=== PATIENT | male | born 1995 | race Caucasian/White ===

== ENCOUNTER 2017-02-28 18:54 | Emergency (ER) | payer OTHER ==
[~2017-02-28] VITALS: Ht 172.7 cm; Wt 77.5 kg
[~2017-02-28 18:54] MED LIST: BACTDS PO; CEPH-443 PO; IBUP-1542 PO
[2017-02-28 18:59] VITALS: Ht 172.7 cm; Wt 77.5 kg
[2017-02-28] MEDS ORDERED: CEPH-443 PO (21:14)
[2017-02-28] MEDS ORDERED: IBUP-1542 PO (21:14)
--- NOTE | 2017-02-28 21:18 | ERD ---
ER Documentation Chief Complaint Date/Time DATE: 02/28/17 TIME: 21:15 Chief Complaint foreign boy right ring finger"wood" HPI 21-year-old male presents here in emergency department for complaints of a foreign body stuck in the end or his right ring fingernail for 5 days. Patient describes the pain as sharp pain, 6/10 scale, is worse upon touching the area. Patient states that he went to the clinic, they were able to drain some pus. The foreign body still in place. Patient denies any numbness or tingling. Patient denies any fever or chills. Patient did not take any medications for pain. ROS All systems reviewed and are negative except as per history of present illness. Medications Home Meds Active Scripts Ibuprofen* (Motrin*) 600 Mg Tab, 600 MG PO Q6H Y for PAIN AND OR ELEVATED TEMP, #30 TAB Prov:ORI RAYO NP 02/28/17 Cephalexin* (Keflex*) 500 Mg Capsule, 500 MG PO QID for 10 Days, CAP Prov:ORI RAYO NP 02/28/17 Ibuprofen* (Motrin*) 600 Mg Tab, 600 MG PO Q6H Y for PAIN AND OR ELEVATED TEMP, #30 TAB Prov:ORI RAYO NP 11/10/15 Cephalexin* (Keflex*) 500 Mg Capsule, 500 MG PO QID for 10 Days, CAP Prov:ORI RAYO NP 11/10/15 Sulfamethoxazole-Trimethoprim* (Bactrim* DS) 800-160 Mg Tab, 1 TAB PO BID for 10 Days, TAB Prov:ORI RAYO NP 11/10/15 Reported Medications [none] Unknown Strength No Conflict Check 11/10/15 Allergies Allergies: Coded Allergies: No Known Allergy (Unverified , 01/22/14) PMhx/Soc Medical and Surgical Hx: pt denies Medical Hx, pt denies Surgical Hx Hx Alcohol Use: No Hx Substance Use: No Hx Tobacco Use: No Smoking Status: Never smoker FmHx Family History: No coronary disease, No diabetes, No other Physical Exam Vitals Vital Signs Date Time Temp Pulse Resp B/P Pulse Ox O2 Delivery O2 Flow Rate FiO2 02/28/17 18:59 97.9 75 20 124/72 97 Physical Exam GENERAL: The patient is well developed and appropriate for usual state of health, in no apparent distress. CHEST: Clear to auscultation bilaterally. There are no rales, wheezes or rhonchi. HEART: Regular rate and rhythm. No murmurs, clicks, rubs or gallops. No S3 or S4. ABDOMEN: Soft, nontender and nondistended. Good bowel sounds. No rebound or guarding. No gross peritonitis. No gross organomegaly or masses. No Radford sign or McBurney point tenderness. BACK: No midline or flank tenderness. EXTREMITIES: Equal pulses bilaterally. There is no peripheral clubbing, cyanosis or edema. No focal swelling or erythema. Full range of motion. Grossly neurovascularly intact. NEURO: Alert and oriented. Cranial nerves 2-12 intact. Motor strength in all 4 extremities with 5/5 strength. Sensation grossly intact. Normal speech and gait. SKIN: Noted 0.5 cm of wood splinter noted under the right ring fingernail. No pustular discharge noted, no fluctuance noted. There is no apparent ecchymosis or petechia. The skin is warm and dry. HEMATOLOGIC AND LYMPHATIC: There is no evidence of excessive bruising or lymphedema. No gross cervical, axillary, or inguinal lymphadenopathy. Results 24 hrs Current Medications Medications (Trade) Dose Ordered Sig/Kamila Route PRN Reason Start Time Stop Time Status Last Admin Dose Admin Diphtheria/ Tetanus/Acell Pertussis (Adacel) 0.5 ml ONCE ONCE IM* 02/28/17 21:30 02/28/17 21:31 Tdap was given to prevent tetanus. Patient tolerated medication well. Procedures/MDM Procedure note: After patient's verbal consent, the area was cleaned with diluted Betadine, after cleaning the wound, then that it wood splinter was removed without any difficulty using a tweezer. Patient tolerated procedure well. Medical Decision making: The wood splinter was removed without any difficulty. No symptoms of any neurovascular compromise. No symptoms of any abscess at this time. No symptoms of any sepsis at this time. Should she was given for Keflex to prevent infection, ibuprofen for pain, was advised to do wound care on affected area, return to emergency department for any worsening symptoms. Otherwise, advised to follow-up with primary care doctor in 2 days for reevaluation of symptoms. Departure Diagnosis: Primary Impression: Embedded wood splinter Condition: Stable Patient Instructions: Foreign Body, Soft Tissue (Removed) ORI RAYO NP Feb 28, 2017 21:18
[2017-02-28] MEDS ORDERED: DIPHTH/TET/ACEL PERTUSS (ADULT) 0.5 ML VIAL IM* ONE (21:30)
--- NOTE | 2017-03-01 05:52 | ERD ---
ER Documentation Chief Complaint Date/Time DATE: 02/28/17 TIME: 21:10 Chief Complaint foreign boy right ring finger"wood" HPI See other documentation. ROS All systems reviewed and are negative except as per history of present illness. Medications Home Meds Active Scripts Ibuprofen* (Motrin*) 600 Mg Tab, 600 MG PO Q6H Y for PAIN AND OR ELEVATED TEMP, #30 TAB Prov:ORI RAYO NP 02/28/17 Cephalexin* (Keflex*) 500 Mg Capsule, 500 MG PO QID for 10 Days, CAP Prov:ORI RAYO NP 02/28/17 Ibuprofen* (Motrin*) 600 Mg Tab, 600 MG PO Q6H Y for PAIN AND OR ELEVATED TEMP, #30 TAB Prov:ORI RAYO NP 11/10/15 Cephalexin* (Keflex*) 500 Mg Capsule, 500 MG PO QID for 10 Days, CAP Prov:ORI RAYO NP 11/10/15 Sulfamethoxazole-Trimethoprim* (Bactrim* DS) 800-160 Mg Tab, 1 TAB PO BID for 10 Days, TAB Prov:ORI RAYO NP 11/10/15 Reported Medications [none] Unknown Strength No Conflict Check 11/10/15 Allergies Allergies: Coded Allergies: No Known Allergy (Unverified , 01/22/14) PMhx/Soc Medical and Surgical Hx: pt denies Medical Hx, pt denies Surgical Hx Hx Alcohol Use: No Hx Substance Use: No Hx Tobacco Use: No Smoking Status: Never smoker Physical Exam Vitals Vital Signs Date Time Temp Pulse Resp B/P Pulse Ox O2 Delivery O2 Flow Rate FiO2 02/28/17 18:59 97.9 75 20 124/72 97 Results 24 hrs Current Medications Medications (Trade) Dose Ordered Sig/Kamila Route PRN Reason Start Time Stop Time Status Last Admin Dose Admin Diphtheria/ Tetanus/Acell Pertussis (Adacel) 0.5 ml ONCE ONCE IM* 02/28/17 21:30 02/28/17 21:31 DC 02/28/17 21:33 Tdap was given to prevent tetanus. Patient tolerated medication well. ORI RAYO NP Feb 28, 2017 21:20 Tdap was given to prevent tetanus. Patient tolerated medication well. ORI RAYO NP Feb 28, 2017 21:20
== END 2017-02-28 21:51 | disposition home or self-care (01) ==
LOC: FTE 18:54
DX: S60.454A Superficial foreign body of right ring finger, initial encounter (principal); W45.8XXA Other foreign body or object entering through skin, initial encounter; Y92.9 Unspecified place or not applicable; Z23 Encounter for immunization
CPT/HCPCS: 90471; 90715; Z7502

== ENCOUNTER 2018-07-18 16:13 | Emergency (ER) | payer OTHER ==
[~2018-07-18] VITALS: Ht 180.3 cm; Wt 81.4 kg
[2018-07-18 16:17] VITALS: BP 139/70; PULSE 91; RESP 18; Ht 180.3 cm; Wt 81.4 kg
[2018-07-18] MEDS ORDERED: IBUPROFEN 600 MG TAB PO ONE (17:00)
[2018-07-18] MEDS ORDERED: IBUP-1542 PO (17:47)
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
== END 2018-07-18 18:37 | disposition home or self-care (01) ==
LOC: FTE 16:13
DX: S39.92XA Unspecified injury of lower back, initial encounter (principal); V87.7XXA Person injured in collision between other specified motor vehicles (traffic), initial encounter
CPT/HCPCS: 72040; 72100; Z7502; Z7610